=== PATIENT | male | born 1935 | race Caucasian/White ===

== ENCOUNTER → 2016-06-30 | Outpatient (CLI) | payer OTHER ==
[~2016-06-30] MED LIST: ASPEC325 PO; CLB200 PO; FLUT0.0529 NAE; HYDR-5688 PO; OMEG10007 PO; OXYSR10 PO; SALI1SPR3 NAE; [UNRECOGNIZED DRUG - OTHER] PO
[2016-06-30 18:10] LABS: BASO % 0.2 %; BASO ABS # 0.01 K/uL (0-0.2); COMPLETE YES; IG% 0.5 %; LYMPH % 31.6 %; LYMPH ABS # 1.74 K/uL (1.2-3.4); MEAN CELL VOLUME 85.9 fL (80-100); MEAN CORPUSCULAR HEMOGLOBIN 28.9 pg (25-34); MEAN CORPUSCULAR HGB CONC 33.6 g/dl (32-36); MEAN PLATELET VOLUME 9.9 fL (7.4-10.4); MONO % 8.5 %; NEUT % 55.2 %; PLATELET COUNT 173 K/uL (130-400); RED BLOOD COUNT 5.12 M/uL (4.7-6.1); WHITE BLOOD COUNT 5.51 K/uL (4.8-10.8)
[2016-06-30 19:00] LABS: ALB/GLOB RATIO 1.1 (0.9-2); ALT/SGPT 32 U/L (12-78); AST/SGOT 22 U/L (15-37); BLOOD UREA NITROGEN 17 mg/dl (7-18); BUN/CREATININE RATIO 18.7 (10-20); CALCIUM 8.6 mg/dl (8.5-10.1); CARBON DIOXIDE 28 mmol/L (21-32); CHLORIDE 110 mmol/L (98-107); CREATININE 0.93 mg/dl (0.60-1.40); GLUCOSE 95 mg/dl (70-99); POTASSIUM 4.3 mmol/L (3.5-5.1); SODIUM 145 mmol/L (136-145)
[2016-06-30 19:05] LABS: ALKALINE PHOSPHATASE 64 U/L (45-117); CHOLESTEROL 161 mg/dl (0-200); HDL CHOLESTEROL 54 mg/dl; LDL CHOLESTEROL CALCULATED 88 mg/dl; TRIGLYCERIDES 95 mg/dl (0-150); VERY LOW DENSITY LIPOPROT CALC 19 mg/dl
== END | disposition home or self-care (01) ==
LOC: C.LABSPEC 17:45
PROVIDERS: ATTEND Family Medicine
DX: Z00.00 Encounter for general adult medical examination without abnormal findings (principal); Z12.5 Encounter for screening for malignant neoplasm of prostate

== ENCOUNTER 2020-05-13 07:50 | Observation (INO) ==
--- NOTE | 2020-04-21 15:50 | PAT Medication Instructions ---
Medication Instructions Date of Service April 21, 2020 Home Medications omega-3 fatty acids 1,000 mg capsule 1,000 mg PO QAM finasteride 5 mg PO QPM tamsulosin 0.4 mg PO QPM STOP taking 2 weeks before surgery omega-3 fatty acids 1,000 mg capsule 1,000 mg PO QAM Take evening before surgery finasteride 5 mg PO QPM tamsulosin 0.4 mg PO QPM OTHERWISE NOTHING TO EAT OR DRINK AFTER MIDNIGHT Other Notes If you have any questions please call us at [phone] or [phone] or [phone] or [phone]
--- NOTE | 2020-04-23 11:33 | Anesthesiology Consultation ---
Date of Service April 23, 2020 Assessment & Plan (1) Encounter for pre-operative examination: Chart Review Chart Review: Acceptable Risk for Surgery (pending preop Covid testing ) and Patient seen in Pre Admission Testing Per PAT appointment 04/23/20, patient denies any recent travel. Wears proper PPE. No known Covid infection in the past 90 days. No known Covid positive contacts or Covid related symptoms. Preop Covid testing scheduled 05/08/20= will await results . Educated on importance of self quarantining, social distancing and wearing mask in public both for the patient and household contacts. Fully vaccinated for Covid. Pt's daughter from [place] will be coming to visit prior to surgery- daughter follows all Covid restrictions- did educated the patient that he will need to social distances from daughter until after surgery. Teaching & Discussion Pre-Anesthesia Teaching/Discussion Notes: Instructed NPO after midnight before surgery,except medications with 15 cc of water. Medication instructions provided according to the [facility] guidelines. History Surgery Operation Date: 05/13/20 10:05 Proposed Procedures p Right Total Hip Arthroplasty - Javan Rodriguez MD Height/Weight Height: 5 ft 10 in Weight: 97.4 kg Allergies Allergy/AdvReac Type Severity Reaction Status Date / Time No Known Allergies Allergy Unverified 04/17/20 10:22 Medications Home Medications Medication Instructions Recorded Confirmed Last Taken omega-3 fatty acids 1,000 mg 1,000 mg PO QAM 08/06/19 04/17/20 Unknown capsule finasteride 5 mg PO QPM 04/17/20 04/17/20 Unknown tamsulosin 0.4 mg PO QPM 04/17/20 04/17/20 Unknown Past Medical History Medical History BPH (benign prostatic hyperplasia) Cervical radiculopathy Chronic back pain Degenerative disc disease Osteoarthritis Tremor 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 Exercise / Class Metabolic Activity II 4-5 Yardwork/Stairs/Walk up hill (one flight of stairs - no chest pain or SOB ) Past Family History Family History Mother Congestive heart failure (CHF) age 99 Father Alcoholism Peptic ulcer disease internal bleeding age 83 Grandfather (Maternal) Natural age 64 smoker Other No family history of adverse response to anesthesia No pertinent family history Past Surgical History Surgical History History of carpal tunnel release right History of knee replacement, total left History of left hip replacement History of nasal surgery History of tonsillectomy S/P epidural steroid injection Past Anesthesia History No Hx of Anesthesia Complications and No Family Hx of Anesthesia Complications History of PONV No Hx of PONV and No Hx of Motion Sickness Social History Smoking Status: Never smoker Do You Dip or Chew Tobacco: No Hx Alcohol Use: Yes Alcohol type: wine alcohol intake frequency: a few times a month Hx Substance Use: No substance use type: does not use Review of Systems Snoring in the past - improved since nasal polyp removed. Patient denies chest pain, shortness of breath, dyspnea on exertion, reflux, cough, wheezing, palpitations. No hx of seizures, stroke, [place]. No hx of blood clots or blood transfusions Physical Exam Vital Signs VITALS BP 152/81 P 89 TEMP 98.3 SP02 96% RESP 16 Constitutional no acute distress ENMT Mouth: no TMJ clicking Thyromental Distance: > or= 3.5 Finger Breadths (4.0) Mallampati Class: III Full upper dentures Missing molars on bottom Neck + short neck and + limited neck extension (significant ) Respiratory normal respiratory effort; no respiratory distress Auscultation: lungs clear to auscultation bilaterally; no wheezes Cardiovascular Rate/Rhythm: regular rate and regular rhythm Heart Sounds: no murmur Vessels: no carotid bruit Musculoskeletal Spine: no pain with cervical ROM Extremities: extremities normal to inspection Psychiatric Orientation: alert Testing Laboratory Results 04/23/20 11:53 04/23/20 11:53 PT 10.2 Seconds (9.0-12.0) 04/23/20 11:53 INR 1.0 (0.9-1.1) 04/23/20 11:53 APTT 25.6 Seconds (21.0-31.0) 04/23/20 11:53 Hemoglobin A1c 6.2 % (4.5-5.6) H 04/23/20 11:53 Urine Color Yellow 04/23/20 13:55 Urine Appearance Clear (Clear) 04/23/20 13:55 Urine pH 5.0 (4.5-7.5) 04/23/20 13:55 Ur Specific [place] 1.022 (1.000-1.030) 04/23/20 13:55 Urine Protein Negative (Negative) 04/23/20 13:55 Urine Glucose (UA) Negative (Negative) 04/23/20 13:55 Urine Ketones Trace (Negative) H 04/23/20 13:55 Urine Nitrite Negative (Negative) 04/23/20 13:55 Ur Leukocyte Esterase Trace (Negative) H 04/23/20 13:55 Urine WBC (Auto) 1-5 /hpf (0-5) 04/23/20 13:55 Urine RBC (Auto) 0-4 /hpf (0-4) 04/23/20 13:55 U Hyaline Cast (Auto) 1-5 /lpf (0-5) 04/23/20 13:55 U Epithel Cells (Auto) 20-30 /lpf (0-5) H 04/23/20 13:55 Urine Bacteria (Auto) Negative (Negative) 04/23/20 13:55 Blood Type O Positive 04/23/20 11:53 Antibody Screen NEGATIVE 04/23/20 11:53 Electrocardiogram Date: 04/23/20 Findings: + NSR @ (77bpm) and + no change from (August 04, 2017 per cardio ) LAFB. Minimal voltage criteria for LVH, may be normal variant. Chest X-Ray Date: 04/23/20 Findings: + NAD
[2020-04-23 12:42] LABS: Basophils # (auto) 0.01 K/uL (0-0.2); Basophils % (auto) 0.2 %; Eosinophils # (auto) 0.21 K/uL (0-0.5); Eosinophils % (auto) 3.4 %; Hematocrit (blood only) 42.3 % (42-52); Hemoglobin 14.6 g/dL (14.0-18.0); Immature Granulocytes # (auto) 0.01 K/uL (0.00-0.02); Immature Granulocytes % (auto) 0.2 %; Lymphocytes # (auto) 1.61 K/uL (1.2-3.4); Lymphocytes % (auto) 26.2 %; Mean Corpuscular Hemoglobin 28.5 pg (25-34); Mean Corpuscular Hgb Conc 34.5 g/dL (32-36); Mean Corpuscular Volume 82.5 fL (80-100); Mean Platelet Volume 10.1 fL (7.4-10.4); Monocytes # (auto) 0.54 K/uL (0.11-0.59); Monocytes % (auto) 8.8 %; Neutrophils # (auto) 3.76 K/uL (1.4-6.5); Neutrophils % (auto) 61.2 %; Platelet Count 184 K/uL (130-400); RDW Coefficient of Variation 13.9 % (11.5-14.5); RDW Standard Deviation 42.1 fL (36.4-46.3); Red Blood Count 5.13 M/uL (4.7-6.1); White Blood Count 6.14 K/uL (4.8-10.8)
--- NOTE | 2020-04-23 12:45 | XRay Report ---
XR chest Pre-admission PA/Lat CLINICAL HISTORY: Preoperative chest COMPARISON STUDY: April 03, 2014 FINDINGS: The cardiac and mediastinal contours are normal. There is no evidence of focal pulmonary co nsolidation. There is no evidence of failure. No pleural effusions are visualized.[ IMPRESSION: No active disease in the chest. ACT 112: Negative or not required by law. Electronically signed by: Mateo Padilla M.D. 04/23/2020 12:43 PM
[2020-04-23 12:50] LABS: Partial Thromboplastin Time 25.6 Seconds (21.0-31.0); Prothrombin Time 10.2 Seconds (9.0-12.0)
[2020-04-23 12:58] LABS: Albumin Level 3.2 gm/dl (3.4-5.0); BUN Creatinine Ratio 20.1 (10-20); Calcium 9.1 mg/dl (8.5-10.1); Creatinine Clr Calc Pharmacy 75.8 ml/min; Est GFR (African American) 92.7; Potassium 3.8 mmol/L (3.5-5.1)
[2020-04-23 13:01] LABS: Estimated Average Glucose 131 mg/dl; Hemoglobin A1C 6.2 % (4.5-5.6)
[2020-04-23 15:33] LABS: Appearance Urine Clear (Clear); Bacteria Urine Automated Negative (Negative); Bilirubin Urine Negative (Negative); Blood Urine Negative (Negative); Color Urine Yellow; Epithelial Cell Urine Auto 20-30 /lpf (0-5); Glucose Urine UA Negative (Negative); Ketones Urine Trace (Negative); Leukocyte Esterase Urine Trace (Negative); Nitrite Urine Negative (Negative); Protein Urine Negative (Negative); RBC Urine Automated 0-4 /hpf (0-4); Specific Gravity Urine 1.022 (1.000-1.030); Urobilinogen Urine Negative (Negative)
--- NOTE | 2020-04-24 12:51 | Electrocardiogram Report ---
Test Reason : Blood Pressure : / mmHG Vent. Rate : 077 BPM Atrial Rate : 077 BPM P-R Int : 188 ms QRS Dur : 110 ms QT Int : 424 ms P-R-T Axes : 061 -57 019 degrees QTc Int : 479 ms Normal sinus rhythm Left anterior fascicular block Minimal voltage criteria for LVH, may be normal variant Abnormal ECG When compared with ECG of 04-AUG-2017 11:11, No significant change was found Confirmed by Jeremy Nichole ([id number]) on 04/24/2020 12:50:34 PM Referred By: Javan Rodriguez Confirmed By:Jeremy Nichole
--- NOTE | 2020-05-10 20:48 | History & Physical Report ---
Date of Service May 10, 2020 Assessment & Plan (1) Osteoarthritis of right hip: Treatment options discussed with patient. He has failed conservative measures. Risks, benefits and alternatives to surgery including but not limited to infection, DVT, pain, stiffness, need for revision surgery, damage to blood vessels, damage to nerves, PE, , were discussed with the patient and they wish to proceed. Plan for right total hip arthroplasty at [facility] on 05/13/[address] Rodriguez. Will plan on aspirin 81mg BID x 1 mo post op for DVT prophylaxis. He will attend outpatient PT. All questions answered. F/u post operatively. Osteoarthritis type: primary Qualified Code(s): M16.11 - Unilateral primary osteoarthritis, right hip History of Present Illness Chief Complaint: Right hip pain Primary Care Provider: Domenic Sommer MD 84 year old male with PMHx significant for essential tremor, BPH, and DDD presents with longstanding right hip pain. Pain is interfering with his daily activity. He has failed conservative measures. Previously has had left hip replacement and has done well. Would like to proceed with right hip replacement. Patient denies headaches, sweats, fevers, chills, double vision, blurred vision, cough, sore throat, dysphagia, chest pain, sob, wheezing, n/v/d/c, numbness, tingling, fatigue, urinary symptoms, mood disorders. ROS positive for right hip pain and stiffness. 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 Surgical History History of carpal tunnel release right History of knee replacement, total left History of left hip replacement History of nasal surgery History of tonsillectomy S/P epidural steroid injection Family History Mother Congestive heart failure (CHF) age 99 Father Alcoholism Peptic ulcer disease internal bleeding age 83 Grandfather (Maternal) Natural age 64 smoker Other No family history of adverse response to anesthesia No pertinent family history Social History (Updated 03/10/20 @ 15:07 by Trupti Blancas MA) Smoking Status: Never smoker Second Hand Exposure: No; Do You Dip or Chew Tobacco: No; Tobacco Cessation Education Requested by Patient: No Hx Alcohol Use: Yes Alcohol type: wine Alcohol Intake Frequency: Monthly or Less Hx Substance Use: No Preferred Language: Turkmen Communication Ability: Effective Visual Impairment: Limited Hearing Ability: Hard of Hearing Hardware Sales Assistant Required: No Beliefs That Will Affect Care: None marital status: Current Living Situation: Spouse current occupational status: retired How many Children do You have: 2 Other Information That Helps Us Care for You: No Feels Safe at Home: Yes Safety Concerns: Feels Safe At This Time Childhood Exposure to Second-Hand Smoke: Yes Dental Care, Regularly: Yes Physical Activity Frequency: 3-4 Times per Week Seatbelt Use: always Sunscreen Use: Yes Assistive Devices: Cane, Denture - Upper and Glasses Review of Systems All systems reviewed & are unremarkable except as noted in HPI & below Physical Exam Constitutional: well developed and well nourished; no acute distress Eyes: PERRL, conjunctivae normal, anicteric sclerae ENMT: external ear and nose normal, oropharynx normal Neck: trachea midline, no thyromegaly Respiratory: normal respiratory effort, lungs clear to auscultation Cardiovascular: RRR, no murmur, no edema Musculoskeletal: Right hip: Active and passive painful ROM. Flexion to 95 degrees passively, abduction to 30 degrees, ER to 30, IR to 10 degrees. Strength normal. Skin: no rashes, warm and dry Neurologic: patellar DTR's 2+ bilat, sensation intact Psychiatric: A+Ox3, euthymic affect Results & Data ([facility]) Laboratory Results Lab Results 04/23/20 04/23/20 04/23/20 Range/Units 11:53 11:53 11:53 WBC 6.14 (4.8-10.8) K/uL RBC 5.13 (4.7-6.1) M/uL Hgb 14.6 (14.0-18.0) g/dL Hct 42.3 (42-52) % MCV 82.5 (80-100) fL MCH 28.5 (25-34) pg MCHC 34.5 (32-36) g/dL RDW Std Deviation 42.1 (36.4-46.3) fL RDW Coeff of Laurie 13.9 (11.5-14.5) % Plt Count 184 (130-400) K/uL MPV 10.1 (7.4-10.4) fL Immature Gran % (Auto) 0.2 % Neut % (Auto) 61.2 % Lymph % (Auto) 26.2 % [place] % (Auto) 8.8 % Eos % (Auto) 3.4 % Baso % (Auto) 0.2 % Neut # (Auto) 3.76 (1.4-6.5) K/uL Lymph # (Auto) 1.61 (1.2-3.4) K/uL [place] # (Auto) 0.54 (0.11-0.59) K/uL Eos # (Auto) 0.21 (0-0.5) K/uL Baso # (Auto) 0.01 (0-0.2) K/uL Immature Gran # (Auto) 0.01 (0.00-0.02) K/uL PT (9.0-12.0) Seconds INR (0.9-1.1) APTT (21.0-31.0) Seconds PTT Ratio Sodium 141 (136-145) mmol/L Potassium 3.8 (3.5-5.1) mmol/L Chloride 110 H (98-107) mmol/L Carbon Dioxide 26 (21-32) mmol/L Anion Gap 5.0 (3-11) BUN 18 (7-18) mg/dl Creatinine 0.88 (0.6-1.4) mg/dl Est Cr Clr Drug Dosing 75.8 ml/min Est GFR ( Amer) 92.7 Est GFR (Non-Af Amer) 80.0 BUN/Creatinine Ratio 20.1 H (10-20) Glucose 101 H (70-99) mg/dl Estimat Average Glucose mg/dl Hemoglobin A1c (4.5-5.6) % Calcium 9.1 (8.5-10.1) mg/dl Albumin 3.2 L (3.4-5.0) gm/dl Urine Color Urine Appearance (Clear) Urine pH (4.5-7.5) Ur Specific [place] (1.000-1.030) Urine Protein (Negative) Urine Glucose (UA) (Negative) Urine Ketones (Negative) Urine Blood (Negative) Urine Nitrite (Negative) Urine Bilirubin (Negative) Urine Urobilinogen (Negative) Ur Leukocyte Esterase (Negative) Urine WBC (Auto) (0-5) /hpf Urine RBC (Auto) (0-4) /hpf U Hyaline Cast (Auto) (0-5) /lpf U Epithel Cells (Auto) (0-5) /lpf Urine Bacteria (Auto) (Negative) Blood Type O Positive Antibody Screen NEGATIVE 04/23/20 04/23/20 04/23/20 Range/Units 11:53 11:53 13:55 WBC (4.8-10.8) K/uL RBC (4.7-6.1) M/uL Hgb (14.0-18.0) g/dL Hct (42-52) % MCV (80-100) fL MCH (25-34) pg MCHC (32-36) g/dL RDW Std Deviation (36.4-46.3) fL RDW Coeff of Laurie (11.5-14.5) % Plt Count (130-400) K/uL MPV (7.4-10.4) fL Immature Gran % (Auto) % Neut % (Auto) % Lymph % (Auto) % [place] % (Auto) % Eos % (Auto) % Baso % (Auto) % Neut # (Auto) (1.4-6.5) K/uL Lymph # (Auto) (1.2-3.4) K/uL [place] # (Auto) (0.11-0.59) K/uL Eos # (Auto) (0-0.5) K/uL Baso # (Auto) (0-0.2) K/uL Immature Gran # (Auto) (0.00-0.02) K/uL PT 10.2 (9.0-12.0) Seconds INR 1.0 (0.9-1.1) APTT 25.6 (21.0-31.0) Seconds PTT Ratio 1.0 Sodium (136-145) mmol/L Potassium (3.5-5.1) mmol/L Chloride (98-107) mmol/L Carbon Dioxide (21-32) mmol/L Anion Gap (3-11) BUN (7-18) mg/dl Creatinine (0.6-1.4) mg/dl Est Cr Clr Drug Dosing ml/min Est GFR ( Amer) Est GFR (Non-Af Amer) BUN/Creatinine Ratio (10-20) Glucose (70-99) mg/dl Estimat Average Glucose 131 mg/dl Hemoglobin A1c 6.2 H (4.5-5.6) % Calcium (8.5-10.1) mg/dl Albumin (3.4-5.0) gm/dl Urine Color Yellow Urine Appearance Clear (Clear) Urine pH 5.0 (4.5-7.5) Ur Specific [place] 1.022 (1.000-1.030) Urine Protein Negative (Negative) Urine Glucose (UA) Negative (Negative) Urine Ketones Trace H (Negative) Urine Blood Negative (Negative) Urine Nitrite Negative (Negative) Urine Bilirubin Negative (Negative) Urine Urobilinogen Negative (Negative) Ur Leukocyte Esterase Trace H (Negative) Urine WBC (Auto) 1-5 (0-5) /hpf Urine RBC (Auto) 0-4 (0-4) /hpf U Hyaline Cast (Auto) 1-5 (0-5) /lpf U Epithel Cells (Auto) 20-30 H (0-5) /lpf Urine Bacteria (Auto) Negative (Negative) Blood Type Antibody Screen Diagnostic Findings Right hip radiographs: Arthritic change right hip with osteophyte formation femoral head. Bone on bone femoroacetabular joint.
[~2020-05-13 07:50] MED LIST changes: +ACETAMINOPHEN 500 MG TAB PO SCH; -ASPEC325 PO; +BUPIVACAINE 0.5 % 5 MG/1 ML PF 10ML VIAL ONE; -CLB200 PO; +CeleBREX 200 MG CAP PO SCH; +FAMOTIDINE 20 MG TAB PO SCH; -FLUT0.0529 NAE; +GABAPENTIN 300 MG CAP PO SCH; -HYDR-5688 PO; +LR 500ML BOLUS, THEN 15ML/HR IV SCH; +METOCLOPRAMIDE HCL 10 MG TABLET PO SCH; -OMEG10007 PO; -OXYSR10 PO; +ROPIVACAINE 0.5% HCL/PF 150 MG, BUPIVACAINE 0.75% MPF 20 ML, EPINEPHrine 30MG/30ML (OR ... INSTIL SCH; -SALI1SPR3 NAE; +TRANEXAMIC ACID 1,000 MG **IV Intra-op IV SCH; +TRANEXAMIC ACID 1,000 MG **IV Pre-op IV SCH; -[UNRECOGNIZED DRUG - OTHER] PO; +ceFAZolin 2000MG 2,000 MG/15 ML SYR IV SCH; +dexAMETHasone 4 MG TAB PO SCH
[2020-05-13] MEDS ORDERED: fentaNYL citrate 100 MCG/2 ML VIAL ONE (09:03)
[2020-05-13] MEDS ORDERED: LIDOCAINE HCL 2% 2 ML VIAL/AMP(20MG/ML) INFIL ONE (09:03)
[2020-05-13] MEDS ORDERED: PROPOFOL IV EMULSION 10 MG/ML 20 ML VIAL IV ONE ×2 (09:03→14:06)
[2020-05-13] MEDS ORDERED: MIDAZOLAM HCL 1 MG/ML 2ML VIAL ONE (09:03)
[2020-05-13] MEDS ORDERED: ONDANSETRON INJ 2 MG/ML 2 ML VIAL IV PRN ×2 (09:36→15:29)
[2020-05-13] MEDS ORDERED: ATROPINE SULFATE 0.1 MG/ML 10ML SYR IV PRN (09:36)
[2020-05-13] MEDS ORDERED: fentaNYL citrate 100 MCG/2 ML VIAL IV PRN (09:36)
[2020-05-13] MEDS ORDERED: ePHEDrine sulfate 50 MG/ML AMP IV PRN (09:36)
--- NOTE | 2020-05-13 10:17 | History & Physical Bridge Note ---
Date of Service May 13, 2020 History & Physical Bridge Note I have examined the patient, reviewed the History & Physical and in the interval since the performance of the History & Physical I have noted the following changes of clinical significance: no changes noted
[2020-05-13] MEDS ORDERED: ORTHO JOINT ANESTHETIC ONE (10:22)
[2020-05-13] MEDS ORDERED: BACITRACIN INJ 50,000 UNIT VIAL ONE (10:23)
--- NOTE | 2020-05-13 13:55 | Operative Report ---
Post Operative Report Pre & Post Diagnosis Operation Date: 05/13/20 10:00 Pre-Op Diagnosis: Right Hip Degenerative Joint Disease Post-Op Diagnosis: Right Hip Degenerative Joint Disease I identified the patient and participated in the time-out.: Yes Procedure Operation Date: 05/13/20 10:00 Actual Procedures p Right Total Hip Arthroplasty(Right) - Javan Rodriguez MD Surgeon Javan Rodriguez MD Rivet Bucker Capo MODI Estimated Blood Loss 200 Findings Consistent with Post-Op Diagnosis Specimens Femoral head Drains 2 Hemovac Anesthesia Type MAC Spinal Regional Complications none Disposition Accompanied Patient To Recovery: No Disposition: Recovery Room Indications 84-year-old male with chronic progressive right hip pain failed conservative management. Patient has osteoarthritis of the right hip with progression on radiographs with a protrusio type pattern arthritis. There is joint space narrowing osteophytes. Patient had left hip replacement in the past with good results. Description of Procedure Patient taken to the operating room and anesthetized under spinal anesthesia and sedation. Patient was placed supine on the operating table. Exam of the involved extremity demonstrated flexion to 100 degrees passively with 15 degrees internal rotation mild shortening of the leg..The patient was placed on a sacral pad and the involved leg was placed on a foot bump to flex knee 90 and hip 60. A Canseco-type approach was performed to the hip. A longitudinal lateral incision was made over the hip. The skin was incised sharply. The fat was divided down to the fascia. Subcutaneous bleeders are cauterized. Trochanteric bursa was resected. There was thickened trochanteric bursa noted. A split was made in the gluteus medius muscle between the anterior 40% and posterior 60%. The minimus was divided longitudinally reflected off the underlying capsule. The capsule was incised down to the hip joint. An incision was made through the gluteus medius leaving a cuff of tendon for repair on the greater trochanter. The vastus lateralis was split longitudinally for about 3 cm. A muscular capsular flap was elevated off the hip. The hip was dislocated with use of bone hook and with flexion and external rotation of the hip. The femoral neck cut was made approximately 15 mm proximal to the lesser trochanter in neutral anteversion. Head and neck fragment were removed. The femoral head demonstrated femoral neck osteophytes with articular joint space narrowing with central grade 4 wear. A self-retaining superior tractor was impacted into the ilium, a blunt Jesus retractor was placed anteriorly a double angled inferior retractor was placed on the ischium. The acetabulum demonstrated an acetabular labral tear with a large para labral cyst superiorly. There was central wear of the acetabulum. The acetabular labrum was resected, the acetabular labral cyst was resected, all osteophytes were resected.The soft tissue in the acetabular fossa was resected. An anterior capsular release was performed. Some the capsule was resected for exposure. The first reamer was used to medialize reaming to the inner table and then sequential reamers for the acetabulum were used in 2 mm increments up to a size 56 mm. I used the [employer] total hip arthroplasty system using a Trident 2 Tritanium cluster hole acetabular shell . Trial reduction demonstrated a 56 millimeter cup was the appropriate size and fit. The placement of the final implant was performed after irrigating the acetabulum with antibiotic solution with pulsatile lavage. The position of the cup was approximately 15 anteversion 45 abduction. Good fixation was performed. Two 6.5 mm cancellus screws were placed in the posterior superior quadrant for further fixation through the cup. The acetabular liner was impacted into position. The 36 mm F 10 degree high wall X3 polyethylene acetabular liner was used.The Orthomix coctail injected into the capsule around the acetabular component and deeper muscles. The retractors removed and attention was taken to the femur. The femur was exposed with flexion external rotation. A Canal reamer was used followed by sequential tapered Accolade 2 broaches up to a size 6. This had a good fit and fill. Trial reduction was performed with a 127 degree neck angle based on preoperative templating. A + 0 neck length gave equal leg lengths and stable range of motion through full flexion flexion adduction and internal rotation and extension and external r otation. The trials removed and after irrigation again and the final implant was impacted which was the Accolade 2 size 6 with 127 degree neck angle. The Biolox ceramic head size 36 with a +0 neck was used. After final implants replaced the reduction was noted to be stable. Betadine soak was used per protocol. 2 drains were placed deep. These were brought out laterally and connected to Hemovac. The minimus was closed with interrupted [id number] #1 Vicryl sutures. The medius was closed with transosseous #5 FiberWire sutures using Ronny Deuce suture technique. Lateral row soft tissue repair was performed with figure of 8 #2 FiberWire sutures. The medius split was closed with interrupted [id number] #1 Vicryl sutures. The vastus lateralis was closed with interrupted figure of eight #1Vicryl sutures. The fascia jason was closed with interrupted figure of eight #1 Vicryl sutures. The fat was closed with [id number] #2 Vicryl sutures. Skin was closed with prabhakar and sterile dressings were applied. The patient tolerated procedure well. Capo MODI my physician school office assistant assisted me in the procedure with patient positioning And draping soft tissue retraction instrument management suture management and assisted in the outer layer closure and will participate in the postoperative care the patient. I attest to the content of the Intraoperative Record and any orders documented therein. Any exceptions are noted below.
--- NOTE | 2020-05-13 14:23 | Anesthesiology Progress Note ---
Date of Service May 13, 2020 Anesthesia Post Procedure Vital Signs Vital Signs: Temp Pulse Pulse Resp BP Pulse Ox 05/13/20 14:20 64 15 125/76 97 05/13/20 14:10 36.6 C 70 15 131/86 98 05/13/20 08:49 36.7 C 68 18 126/92 96 Transfer of Care Handoff Completed per policy Notes Mental Status: alert / awake / arousable Patient Amnestic to Procedure: Yes Nausea / Vomiting: adequately controlled Pain: adequately controlled Airway Patency, RR, SpO2: stable & adequate BP & HR: stable & adequate Hydration State: stable & adequate Anesthetic Complications: no major complications apparent
--- NOTE | 2020-05-13 14:31 | XRay Report ---
XR hip 1V RT w pelvis HISTORY: 84 years-old Male IN PACU - A/P PELVIS and LATERAL HIP right hip total joint arthroplasty COMPARISON: Pelvis and hip radiographs 08/23/2017 TECHNIQUE: AP view the pelvis with crosstable lateral view of the right hip FINDINGS: Left hip total joint arthroplasty redemonstrated. Interval placement of a right hip total joint arthr oplasty demonstrates satisfactory alignment without acute fracture. Overlying skin prabhakar are noted along with expected postsurgical soft tissue swelling and deep tissue air with surgical drainage cath eter. IMPRESSION: Right hip total joint arthroplasty with expected postoperative changes. ACT 112: Negative or not required by law. The above report was generated using voice recognition software. It may contain grammatical, syntax o r spelling errors. Electronically signed by: Girma Murrieta M.D. 05/13/2020 2:30 PM
[2020-05-13] MEDS ORDERED: METOCLOPRAMIDE HCL INJ 5 MG/ML 2 ML VIAL IV PRN (15:29)
[2020-05-13] MEDS ORDERED: NALOXONE HCL 0.4 MG/1 ML VIAL/CARP IV PRN (15:29)
[2020-05-13] MEDS ORDERED: HYDROmorphone INJ 0.5 MG/0.5 ML SYR IV PRN (15:29)
[2020-05-13] MEDS ORDERED: MAGNESIUM HYDROXIDE SUSP 30 ML UDC PO PRN (15:29)
[2020-05-13] MEDS ORDERED: SODIUM CHLORIDE 0.9% 1000ML 1,000 ML IV SCH (15:29)
[2020-05-13] MEDS ORDERED: bisacodyL 10 MG SUPP PR PRN (15:29)
[2020-05-13] MEDS ORDERED: oxyCODONE HCL IR 5 MG TAB (IMMEDIATE RELEASE) PO PRN (15:29)
[2020-05-13] MEDS: ceFAZolin 2000MG 2,000 MG/15 ML SYR IV SCH (17:26)
[2020-05-13] MEDS: SENNA 8.6 MG TAB PO SCH (20:48)
[2020-05-13] MEDS: FINASTERIDE 5 MG TAB PO SCH (20:48)
[2020-05-13] MEDS: ASPIRIN 81 MG ECTAB PO SCH (20:48)
[2020-05-13] MEDS: CeleBREX 200 MG CAP PO SCH (20:48)
[2020-05-13] MEDS: DOCUSATE SODIUM 100 MG CAP PO SCH (20:48)
[2020-05-13] MEDS: TAMSULOSIN HCL 0.4 MG CAP PO SCH (20:48)
[2020-05-13] MEDS: ACETAMINOPHEN 500 MG TAB PO SCH (21:50)
[2020-05-14] MEDS: ceFAZolin 2000MG 2,000 MG/15 ML SYR IV SCH (02:13)
[2020-05-14 06:16] LABS: Basophils # (auto) 0.01 K/uL (0-0.2); Basophils % (auto) 0.1 %; Eosinophils # (auto) 0.02 K/uL (0-0.5); Eosinophils % (auto) 0.2 %; Hematocrit (blood only) 37.3 % (42-52); Immature Granulocytes # (auto) 0.03 K/uL (0.00-0.02); Immature Granulocytes % (auto) 0.2 %; Lymphocytes # (auto) 1.37 K/uL (1.2-3.4); Lymphocytes % (auto) 10.4 %; Mean Corpuscular Hemoglobin 28.7 pg (25-34); Mean Corpuscular Hgb Conc 34.9 g/dL (32-36); Mean Corpuscular Volume 82.3 fL (80-100); Mean Platelet Volume 9.6 fL (7.4-10.4); Monocytes # (auto) 1.05 K/uL (0.11-0.59); Neutrophils # (auto) 10.67 K/uL (1.4-6.5); Neutrophils % (auto) 81.1 %; Platelet Count 180 K/uL (130-400); RDW Coefficient of Variation 13.7 % (11.5-14.5); RDW Standard Deviation 41.7 fL (36.4-46.3); Red Blood Count 4.53 M/uL (4.7-6.1); White Blood Count 13.15 K/uL (4.8-10.8)
[2020-05-14] MEDS: ACETAMINOPHEN 500 MG TAB PO SCH ×3 (06:27→22:22)
--- NOTE | 2020-05-14 06:32 | Consultation Report ---
DATE OF CONSULTATION: 05/14/2020 CHIEF COMPLAINT: Status post right hip surgery. HISTORY OF PRESENT ILLNESS: This is an 84-year-old male with past medical history significant for BPH. No other significant medical problems. He is status post right hip surgery for right hip degenerative joint disease. Tolerated the procedure okay. Denies any pain. Denies any chest pain. No shortness of breath, no cough. Able to eat okay. No headache, no blurred vision, no earache, no runny nose, no sore throat, no nausea, no abdominal pain. Resting comfortably and hemodynamically stable. ALLERGIES: No known drug allergies. PAST MEDICAL HISTORY: As mentioned above. PAST SURGICAL HISTORY: Right total hip arthroplasty. MEDICATIONS: Flomax 0.4 mg p.o. p.m., finasteride 5 mg p.o. p.m., omega fatty acids 1 gram p.o. daily. FAMILY HISTORY: Denies any family history. SOCIAL HISTORY: Lives with his . No smoking. Alcohol occasional. No drug use. REVIEW OF SYSTEMS: As per HPI. Rest of the review of systems negative. PHYSICAL EXAMINATION: GENERAL: The patient is of moderate build, not in acute distress. VITAL SIGNS: Temperature 36.6, pulse 89, respiratory rate 14, blood pressure 132/63, oxygen 96% on room air. HEENT: Head is atraumatic. NECK: No neck masses seen. CARDIOVASCULAR: S1, S2 heard. Regular rate and rhythm. No murmur, no gallop. RESPIRATORY SYSTEM: Normal AP diameter. No accessory muscle use. No wheezing, no crackles. ABDOMEN: Soft, bowel sounds present. Nontender. No distention. CENTRAL NERVOUS SYSTEM: Cranial nerves II-XII grossly intact. Nonfocal. EXTREMITIES: Status post right total hip arthroplasty. Surgical site dressing and drain intact. No edema seen. LABORATORY DATA: Unavailable. ASSESSMENT AND PLAN: This is an 84-year-old male patient status post right hip arthroplasty. 1. Right total hip arthroplasty: Tolerated the procedure fine. Further management as per orthopedics.Will follow labs. 2. Benign prostatic hypertrophy: Continue his home Flomax and finasteride. 3. Deep venous thrombosis prophylaxis.as per orthopedics. 4. Disposition as per orthopedics. [facility]
[2020-05-14 06:54] LABS: BUN Creatinine Ratio 24.2 (10-20); Calcium 8.5 mg/dl (8.5-10.1); Creatinine Clr Calc Pharmacy 69.5 ml/min; Est GFR (Non-African American) 73.3; Potassium 4.2 mmol/L (3.5-5.1)
--- NOTE | 2020-05-14 07:19 | Orthopedic Progress Note ---
Date of Service May 14, 2020 Assessment & Plan (1) Osteoarthritis of right hip: POD#1 Right SACHI -PT/OT-WBAT with walker, no abductor strengthening -Pain management -AM labs-hemoglobin at 13 from 14.6 preop. Mild leukocytosis likely due to perioperative steroids and surgical stress -DVT prophylaxis-ASA 81mg BID, SCDs, TEDs -D/C planning-home with outpatient PT. Plan on d/c tomorrow. Admission and Anticipated Discharge Date Admission Date: May 13, 2020 Supervising Physician Co-Signing Physician Notes Patient seen and examined. Agree with LY Portillo's note as above. Patient overall doing well. Pain is well controlled. He has been ambulating in the hallway. No complaints. Subjective Patient doing well this morning. Pain well controlled. No other complaints. Denies chest pain, sob, dizziness, headache, fever, chills. Review of Systems Constitutional: as per Subjective / HPI Physical Exam Physical Exam: Dressing to right hip is c/d/i. Hemovac in place. Toes are mobile with good dorsiflexion. No calf tenderness. Distally n/v status and sensation intact. Constitutional: well developed and well nourished; no acute distress Results & Data ([facility]) Vital Signs (Past 12 Hours) Vital Signs Temp Pulse Resp BP Pulse Ox 05/14/20 03:43 36.8 C 63 14 113/66 98 05/13/20 23:27 36.6 C 89 14 132/63 96 05/13/20 19:39 36.8 C 84 14 153/79 H 98 (1) Osteoarthritis of right hip Osteoarthritis type: primary Qualified Code(s): M16.11 - Unilateral primary osteoarthritis, right hip
[2020-05-14] MEDS: ASPIRIN 81 MG ECTAB PO SCH ×2 (08:43→21:55)
[2020-05-14] MEDS: DOCUSATE SODIUM 100 MG CAP PO SCH ×2 (08:44→21:55)
[2020-05-14] MEDS: MULTIVITAMIN TAB PO SCH (08:44)
[2020-05-14] MEDS: CeleBREX 200 MG CAP PO SCH ×2 (08:44→21:55)
[2020-05-14] MEDS: TAMSULOSIN HCL 0.4 MG CAP PO SCH (21:55)
[2020-05-14] MEDS: SENNA 8.6 MG TAB PO SCH (21:55)
[2020-05-14] MEDS: FINASTERIDE 5 MG TAB PO SCH (21:55)
[2020-05-15] MEDS: ACETAMINOPHEN 500 MG TAB PO SCH (05:57)
[2020-05-15 06:42] LABS: Hematocrit (blood only) 35.8 % (42-52); Hemoglobin 12.5 g/dL (14.0-18.0); Mean Corpuscular Hemoglobin 28.6 pg (25-34); Mean Corpuscular Hgb Conc 34.9 g/dL (32-36); Mean Corpuscular Volume 81.9 fL (80-100); Mean Platelet Volume 10.2 fL (7.4-10.4); Platelet Count 193 K/uL (130-400); RDW Coefficient of Variation 13.8 % (11.5-14.5); RDW Standard Deviation 41.9 fL (36.4-46.3); Red Blood Count 4.37 M/uL (4.7-6.1); White Blood Count 8.32 K/uL (4.8-10.8)
--- NOTE | 2020-05-15 07:02 | Hospitalist Progress Note ---
Date of Service May 15, 2020 Assessment & Plan (1) Osteoarthritis of right hip: This is an 84-year-old male patient status post right hip arthroplasty. 1. S/p Right total hip arthroplasty w/ Dr. Rodriguez on 05/13 Pt tolerated the procedure well. Further management as per orthopedics, such as pain management, DVT ppx. Hgb stable at 12.5 No sign. electrolyte abnormalities noted 2. Benign prostatic hypertrophy: Continue his home Flomax and finasteride. DVT prophylaxis.as per orthopedics. Disposition as per orthopedics. Admission and Anticipated Discharge Date Admission Date: May 13, 2020 Subjective Patient seen in follow-up, of right hip surgery, and other medical problems Currently sitting up in a chair, in no acute distress Denies any fevers, chills, chest pain, shortness of breath, abdominal pain. He is passing gas but did not have a bowel movement yet. He is voiding urine without difficulty. Reports ambulating in hallway. Reports no complaints. Review of Systems Review of Systems: All systems reviewed & are unremarkable except as noted in HPI & below Constitutional: no fever and no chills Respiratory: no cough and no dyspnea Cardiovascular: no chest pain and no palpitations Gastrointestinal: no abdominal pain, no nausea and no vomiting Physical Exam Physical Exam: GENERAL: The patient is of moderate build, not in acute distress, sitting up in chair. HEENT: Head is normocephalic, atraumatic. NECK: No neck masses seen. CARDIOVASCULAR: S1, S2 heard. Regular rate and rhythm. No murmur, no gallop. RESPIRATORY SYSTEM: Normal AP diameter. No accessory muscle use. No wheezing, no crackles. ABDOMEN: Soft, bowel sounds present. Nontender. No distention. NEURO: Cranial nerves II-XII grossly intact. Nonfocal. Speech fluent. Moves extremities. EXTREMITIES: Status post right total hip arthroplasty. Surgical site dressing and drain intact. No edema seen. Results & Data Results & Data ([facility]) Vital Signs (Past 12 Hours) Vital Signs Temp Pulse Resp BP Pulse Ox 05/15/20 06:43 36.6 C 69 20 139/82 100 05/14/20 22:55 37.2 C 76 18 158/87 H 97 Laboratory Results 05/15/20 05/15/20 Range/Units 06:09 06:09 WBC 8.32 (4.8-10.8) K/uL RBC 4.37 L (4.7-6.1) M/uL Hgb 12.5 L (14.0-18.0) g/dL Hct 35.8 L (42-52) % MCV 81.9 (80-100) fL MCH 28.6 (25-34) pg MCHC 34.9 (32-36) g/dL RDW Std Deviation 41.9 (36.4-46.3) fL RDW Coeff of Laurie 13.8 (11.5-14.5) % Plt Count 193 (130-400) K/uL MPV 10.2 (7.4-10.4) fL Sodium 141 (136-145) mmol/L Potassium 4.0 (3.5-5.1) mmol/L Chloride 112 H (98-107) mmol/L Carbon Dioxide 29 (21-32) mmol/L Anion Gap 0 L (3-11) BUN 21 H (7-18) mg/dl Creatinine 0.80 (0.6-1.4) mg/dl Est Cr Clr Drug Dosing 83.4 ml/min Est GFR ( Amer) 96.4 Est GFR (Non-Af Amer) 83.2 BUN/Creatinine Ratio 25.8 H (10-20) Glucose 107 H (70-99) mg/dl Calcium 8.3 L (8.5-10.1) mg/dl Medications Administered Current Inpatient Medications Acetaminophen (Acetaminophen 500 Mg Tab) 1,000 mg PO Q8 [facility] Stop: 06/12/20 21:59 Last Admin: 05/15/20 05:57 Dose: 1,000 mg Documented by: Aspirin (Aspirin 81 Mg Ectab) 81 mg PO BID [facility] Stop: 06/12/20 20:59 Last Admin: 05/15/20 07:33 Dose: 81 mg Documented by: Bisacodyl (Bisacodyl 10 Mg Supp) 10 mg IA DAILY PRN PRN Reason: Constipation Stop: 06/12/20 15:28 Celecoxib (Celebrex 200 Mg Cap) 200 mg PO BID [facility] Stop: 06/12/20 20:59 Last Admin: 05/15/20 07:33 Dose: 200 mg Documented by: Docusate Sodium (Docusate Sodium 100 Mg Cap) 100 mg PO BID [facility] Stop: 06/12/20 20:59 Last Admin: 05/15/20 07:33 Dose: 100 mg Documented by: Finasteride (Finasteride 5 Mg Tab) 5 mg PO QPM [facility] Stop: 06/12/20 20:59 Last Admin: 05/14/20 21:55 Dose: 5 mg Documented by: Hydromorphone HCl (Hydromorphone Inj 0.5 Mg/0.5 Ml Syr) 0.5 mg IV Q4H PRN PRN Reason: Pain or Pre PT Stop: 05/27/20 15:28 Magnesium Hydroxide (Magnesium Hydroxide Susp 30 Ml Udc) 30 ml PO Q6H PRN PRN Reason: Constipation Stop: 06/12/20 15:28 Metoclopramide HCl (Metoclopramide Hcl Inj 5 Mg/Ml 2 Ml Vial) 10 mg IV Q6H PRN PRN Reason: Nausea And Vomiting Stop: 06/12/20 15:28 Multivitamins (Multivitamin Tab) 1 tab PO QAM [facility] Stop: 06/13/20 08:59 Last Admin: 05/15/20 07:33 Dose: 1 tab Documented by: Naloxone HCl (Naloxone Hcl 0.4 Mg/1 Ml Vial/Carp) 0.1 mg IV Q5M PRN PRN Reason: Oversedation/Resp Depression Stop: 06/12/20 15:28 Ondansetron HCl (Ondansetron Inj 2 Mg/Ml 2 Ml Vial) 4 mg IV Q6H PRN PRN Reason: Nausea And Vomiting Stop: 06/12/20 15:28 Oxycodone HCl (Oxycodone Hcl Ir 5 Mg Tab (Immediate Release)) 5 - 10 mg PO Q4H PRN PRN Reason: Pain or Pre PT Stop: 05/27/20 15:28 Last Admin: 05/14/20 02:33 Dose: 5 mg Documented by: Sennosides (Senna 8.6 Mg Tab) 17.2 mg PO HS [facility] Stop: 06/12/20 20:59 Last Admin: 05/14/20 21:55 Dose: 17.2 mg Documented by: Tamsulosin HCl (Tamsulosin Hcl 0.4 Mg Cap) 0.4 mg PO QPM [facility] Stop: 06/12/20 20:59 Last Admin: 05/14/20 21:55 Dose: 0.4 mg Documented by: (1) Osteoarthritis of right hip Osteoarthritis type: primary Qualified Code(s): M16.11 - Unilateral primary osteoarthritis, right hip
[2020-05-15 07:03] LABS: BUN Creatinine Ratio 25.8 (10-20); Calcium 8.3 mg/dl (8.5-10.1); Creatinine Clr Calc Pharmacy 83.4 ml/min; Est GFR (African American) 96.4; Est GFR (Non-African American) 83.2
[2020-05-15] MEDS: ASPIRIN 81 MG ECTAB PO SCH (07:33)
[2020-05-15] MEDS: CeleBREX 200 MG CAP PO SCH (07:33)
[2020-05-15] MEDS: DOCUSATE SODIUM 100 MG CAP PO SCH (07:33)
[2020-05-15] MEDS: MULTIVITAMIN TAB PO SCH (07:33)
--- NOTE | 2020-05-15 09:17 | Orthopedic Progress Note ---
Date of Service May 15, 2020 Assessment & Plan (1) Osteoarthritis of right hip: POD#2 Right SACHI -PT/OT-WBAT with walker, no abductor strengthening -Pain management as written -AM labs-hemoglobin at 13 from 14.6 preop. Mild leukocytosis likely due to perioperative steroids and surgical stress-resolved -DVT prophylaxis-ASA 81mg BID, SCDs, TEDs -D/C planning-home with outpatient PT. Plan on d/c today. Admission and Anticipated Discharge Date Admission Date: May 13, 2020 Subjective Postop day 1 Patient currently sitting up in a chair at the bedside. No complaints this morning. Pain is controlled. I watched the patient go through his physical therapy ambulation as he ambulated around the hallways. Patient is progressing well and feels well today. He is hoping to go home today. Physical Exam Physical Exam: Silverlon dressing is clean, dry, and intact. Hemovac drain has been removed and he has some slight drainage on his dressing. Thigh is soft and nontender. Calves are soft nontender. Neurovascular intact. Toes are mobile. Leg lengths appear equal. Results & Data ([facility]) Vital Signs (Past 12 Hours) Vital Signs Temp Pulse Resp BP Pulse Ox 05/15/20 06:43 36.6 C 69 20 139/82 100 05/14/20 22:55 37.2 C 76 18 158/87 H 97 Laboratory Results Laboratory Results WBC 8.32 K/uL (4.8-10.8) 05/15/20 06:09 RBC 4.37 M/uL (4.7-6.1) L 05/15/20 06:09 Hgb 12.5 g/dL (14.0-18.0) L 05/15/20 06:09 Hct 35.8 % (42-52) L 05/15/20 06:09 MCV 81.9 fL (80-100) 05/15/20 06:09 MCH 28.6 pg (25-34) 05/15/20 06:09 MCHC 34.9 g/dL (32-36) 05/15/20 06:09 RDW Std Deviation 41.9 fL (36.4-46.3) 05/15/20 06:09 RDW Coeff of Laurie 13.8 % (11.5-14.5) 05/15/20 06:09 Plt Count 193 K/uL (130-400) 05/15/20 06:09 MPV 10.2 fL (7.4-10.4) 05/15/20 06:09 Immature Gran % (Auto) 0.2 % 05/14/20 06:06 Neut % (Auto) 81.1 % 05/14/20 06:06 Lymph % (Auto) 10.4 % 05/14/20 06:06 Elmore % (Auto) 8.0 % 05/14/20 06:06 Eos % (Auto) 0.2 % 05/14/20 06:06 Baso % (Auto) 0.1 % 05/14/20 06:06 Neut # (Auto) 10.67 K/uL (1.4-6.5) H 05/14/20 06:06 Lymph # (Auto) 1.37 K/uL (1.2-3.4) 05/14/20 06:06 Elmore # (Auto) 1.05 K/uL (0.11-0.59) H 05/14/20 06:06 Eos # (Auto) 0.02 K/uL (0-0.5) 05/14/20 06:06 Baso # (Auto) 0.01 K/uL (0-0.2) 05/14/20 06:06 Immature Gran # (Auto) 0.03 K/uL (0.00-0.02) H 05/14/20 06:06 PT 10.2 Seconds (9.0-12.0) 04/23/20 11:53 INR 1.0 (0.9-1.1) 04/23/20 11:53 APTT 25.6 Seconds (21.0-31.0) 04/23/20 11:53 PTT Ratio 1.0 04/23/20 11:53 Sodium 141 mmol/L (136-145) 05/15/20 06:09 Potassium 4.0 mmol/L (3.5-5.1) 05/15/20 06:09 Chloride 112 mmol/L (98-107) H 05/15/20 06:09 Carbon Dioxide 29 mmol/L (21-32) 05/15/20 06:09 Anion Gap 0 (3-11) L 05/15/20 06:09 BUN 21 mg/dl (7-18) H 05/15/20 06:09 Creatinine 0.80 mg/dl (0.6-1.4) 05/15/20 06:09 Est Cr Clr Drug Dosing 83.4 ml/min 05/15/20 06:09 Est GFR ( Amer) 96.4 05/15/20 06:09 Est GFR (Non-Af Amer) 83.2 05/15/20 06:09 BUN/Creatinine Ratio 25.8 (10-20) H 05/15/20 06:09 Glucose 107 mg/dl (70-99) H 05/15/20 06:09 Estimat Average Glucose 131 mg/dl 04/23/20 11:53 Hemoglobin A1c 6.2 % (4.5-5.6) H 04/23/20 11:53 Calcium 8.3 mg/dl (8.5-10.1) L 05/15/20 06:09 Albumin 3.2 gm/dl (3.4-5.0) L 04/23/20 11:53 Urine Color Yellow 04/23/20 13:55 Urine Appearance Clear (Clear) 04/23/20 13:55 Urine pH 5.0 (4.5-7.5) 04/23/20 13:55 Ur Specific Reedley 1.022 (1.000-1.030) 04/23/20 13:55 Urine Protein Negative (Negative) 04/23/20 13:55 Urine Glucose (UA) Negative (Negative) 04/23/20 13:55 Urine Ketones Trace (Negative) H 04/23/20 13:55 Urine Blood Negative (Negative) 04/23/20 13:55 Urine Nitrite Negative (Negative) 04/23/20 13:55 Urine Bilirubin Negative (Negative) 04/23/20 13:55 Urine Urobilinogen Negative (Negative) 04/23/20 13:55 Ur Leukocyte Esterase Trace (Negative) H 04/23/20 13:55 Urine WBC (Auto) 1-5 /hpf (0-5) 04/23/20 13:55 Urine RBC (Auto) 0-4 /hpf (0-4) 04/23/20 13:55 U Hyaline Cast (Auto) 1-5 /lpf (0-5) 04/23/20 13:55 U Epithel Cells (Auto) 20-30 /lpf (0-5) H 04/23/20 13:55 Urine Bacteria (Auto) Negative (Negative) 04/23/20 13:55 Blood Type O Positive 04/23/20 11:53 Antibody Screen NEGATIVE 04/23/20 11:53 Impressions Hip/Pelvis X-Ray 05/13/20 14:13 XR hip 1V RT w pelvis HISTORY: 84 years-old Male IN PACU - A/P PELVIS and LATERAL HIP right hip total joint arthroplasty COMPARISON: Pelvis and hip radiographs 08/23/2017 TECHNIQUE: AP view the pelvis with crosstable lateral view of the right hip FINDINGS: Left hip total joint arthroplasty redemonstrated. Interval placement of a right hip total joint arthroplasty demonstrates satisfactory alignment without acute fracture. Overlying skin prabhakar are noted along with expected postsurgical soft tissue swelling and deep tissue air with surgical drainage catheter. IMPRESSION: Right hip total joint arthroplasty with expected postoperative changes. ACT 112: Negative or not required by law. The above report was generated using voice recognition software. It may contain grammatical, syntax or spelling errors. Electronically signed by: Girma Murrieta M.D. 05/13/2020 2:30 PM (1) Osteoarthritis of right hip Osteoarthritis type: primary Qualified Code(s): M16.11 - Unilateral primary osteoarthritis, right hip
--- NOTE | 2020-05-15 20:58 | Discharge Summary ---
Date of Service May 15, 2020 Admission HPI Per Admitting Provider 84 year old male with PMHx significant for essential tremor, BPH, and DDD presents with longstanding right hip pain. Pain is interfering with his daily activity. He has failed conservative measures. Previously has had left hip replacement and has done well. Would like to proceed with right hip replacement. Patient denies headaches, sweats, fevers, chills, double vision, blurred vision, cough, sore throat, dysphagia, chest pain, sob, wheezing, n/v/d/c, numbness, tingling, fatigue, urinary symptoms, mood disorders. ROS positive for right hip pain and stiffness. Admission Exam Per Admitting Provider Constitutional: well developed and well nourished; no acute distress Eyes: PERRL, conjunctivae normal, anicteric sclerae ENMT: external ear and nose normal, oropharynx normal Neck: trachea midline, no thyromegaly Respiratory: normal respiratory effort, lungs clear to auscultation Cardiovascular: RRR, no murmur, no edema Musculoskeletal: Right hip: Active and passive painful ROM. Flexion to 95 degrees passively, abduction to 30 degrees, ER to 30, IR to 10 degrees. Strength normal. Skin: no rashes, warm and dry Neurologic: patellar DTR's 2+ bilat, sensation intact Psychiatric: A+Ox3, euthymic affect Principal Diagnosis Right hip osteoarthritis Discharge Exam Silverlon dressing is clean, dry, and intact. Hemovac drain has been removed and he has some slight drainage on his dressing. Thigh is soft and nontender. Calves are soft nontender. Neurovascular intact. Toes are mobile. Leg lengths appear equal. Constitutional well developed and well nourished; no acute distress Discharge Data Allergies Allergy/AdvReac Type Severity Reaction Status Date / Time No Known Allergies Allergy Unverified 05/13/20 08:23 Consultations 05/13/20 21:33 Consult Hospitalist Routine Procedures Performed Operation Date: 05/13/20 10:00 Actual Procedures p Right Total Hip Arthroplasty(Right) - Javan Rodriguez MD Hospital Course (1) Osteoarthritis of right hip: Patient presented for same day admission following right total hip arthroplasty on 05/13/20. He tolerated procedure well. The Patient had an uneventful hospital course. Post-operatively, his activity was progressed and well tolerated. They participated in PT with ambulation distance of 250 feet. Labs remained stable- lowest hemoglobin recorded: 12.[address] Ronnell Avendano of medical service was consulted for medical management during admission. Pain controlled on oral medications. Please refer to daily progress notes and PT notes for complete details. After exam on 05/15/20, patient was felt to be stable for discharge home with plans on attending outpatient PT. Patient will f/u in the office in about 2 weeks for further evaluation including x-rays and incision check, sooner if having any issues or concerns. POD#2 Right SACHI -PT/OT-WBAT with walker, no abductor strengthening -Pain management as written -AM labs-hemoglobin at 13 from 14.6 preop. Mild leukocytosis likely due to perioperative steroids and surgical stress-resolved -DVT prophylaxis-ASA 81mg BID, SCDs, TEDs -D/C planning-home with outpatient PT. Plan on d/c today. Lab Results 04/23/20 04/23/20 04/23/20 Range/Units 11:53 11:53 11:53 WBC 6.14 (4.8-10.8) K/uL RBC 5.13 (4.7-6.1) M/uL Hgb 14.6 (14.0-18.0) g/dL Hct 42.3 (42-52) % MCV 82.5 (80-100) fL MCH 28.5 (25-34) pg MCHC 34.5 (32-36) g/dL RDW Std Deviation 42.1 (36.4-46.3) fL RDW Coeff of Laurie 13.9 (11.5-14.5) % Plt Count 184 (130-400) K/uL MPV 10.1 (7.4-10.4) fL Immature Gran % (Auto) 0.2 % Neut % (Auto) 61.2 % Lymph % (Auto) 26.2 % [place] % (Auto) 8.8 % Eos % (Auto) 3.4 % Baso % (Auto) 0.2 % Neut # (Auto) 3.76 (1.4-6.5) K/uL Lymph # (Auto) 1.61 (1.2-3.4) K/uL [place] # (Auto) 0.54 (0.11-0.59) K/uL Eos # (Auto) 0.21 (0-0.5) K/uL Baso # (Auto) 0.01 (0-0.2) K/uL Immature Gran # (Auto) 0.01 (0.00-0.02) K/uL PT (9.0-12.0) Seconds INR (0.9-1.1) APTT (21.0-31.0) Seconds PTT Ratio Sodium 141 (136-145) mmol/L Potassium 3.8 (3.5-5.1) mmol/L Chloride 110 H (98-107) mmol/L Carbon Dioxide 26 (21-32) mmol/L Anion Gap 5.0 (3-11) BUN 18 (7-18) mg/dl Creatinine 0.88 (0.6-1.4) mg/dl Est Cr Clr Drug Dosing 75.8 ml/min Est GFR ( Amer) 92.7 Est GFR (Non-Af Amer) 80.0 BUN/Creatinine Ratio 20.1 H (10-20) Glucose 101 H (70-99) mg/dl Estimat Average Glucose mg/dl Hemoglobin A1c (4.5-5.6) % Calcium 9.1 (8.5-10.1) mg/dl Albumin 3.2 L (3.4-5.0) gm/dl Urine Color Urine Appearance (Clear) Urine pH (4.5-7.5) Ur Specific Dr[place]gs (1.000-1.030) Urine Protein (Negative) Urine Glucose (UA) (Negative) Urine Ketones (Negative) Urine Blood (Negative) Urine Nitrite (Negative) Urine Bilirubin (Negative) Urine Urobilinogen (Negative) Ur Leukocyte Esterase (Negative) Urine WBC (Auto) (0-5) /hpf Urine RBC (Auto) (0-4) /hpf U Hyaline Cast (Auto) (0-5) /lpf U Epithel Cells (Auto) (0-5) /lpf Urine Bacteria (Auto) (Negative) Blood Type O Positive Antibody Screen NEGATIVE 04/23/20 04/23/20 04/23/20 Range/Units 11:53 11:53 13:55 WBC (4.8-10.8) K/uL RBC (4.7-6.1) M/uL Hgb (14.0-18.0) g/dL Hct (42-52) % MCV (80-100) fL MCH (25-34) pg MCHC (32-36) g/dL RDW Std Deviation (36.4-46.3) fL RDW Coeff of Laurie (11.5-14.5) % Plt Count (130-400) K/uL MPV (7.4-10.4) fL Immature Gran % (Auto) % Neut % (Auto) % Lymph % (Auto) % [place] % (Auto) % Eos % (Auto) % Baso % (Auto) % Neut # (Auto) (1.4-6.5) K/uL Lymph # (Auto) (1.2-3.4) K/uL [place] # (Auto) (0.11-0.59) K/uL Eos # (Auto) (0-0.5) K/uL Baso # (Auto) (0-0.2) K/uL Immature Gran # (Auto) (0.00-0.02) K/uL PT 10.2 (9.0-12.0) Seconds INR 1.0 (0.9-1.1) APTT 25.6 (21.0-31.0) Seconds PTT Ratio 1.0 Sodium (136-145) mmol/L Potassium (3.5-5.1) mmol/L Chloride (98-107) mmol/L Carbon Dioxide (21-32) mmol/L Anion Gap (3-11) BUN (7-18) mg/dl Creatinine (0.6-1.4) mg/dl Est Cr Clr Drug Dosing ml/min Est GFR ( Amer) Est GFR (Non-Af Amer) BUN/Creatinine Ratio (10-20) Glucose (70-99) mg/dl Estimat Average Glucose 131 mg/dl Hemoglobin A1c 6.2 H (4.5-5.6) % Calcium (8.5-10.1) mg/dl Albumin (3.4-5.0) gm/dl Urine Color Yellow Urine Appearance Clear (Clear) Urine pH 5.0 (4.5-7.5) Ur Specific Dr[place]gs 1.022 (1.000-1.030) Urine Protein Negative (Negative) Urine Glucose (UA) Negative (Negative) Urine Ketones Trace H (Negative) Urine Blood Negative (Negative) Urine Nitrite Negative (Negative) Urine Bilirubin Negative (Negative) Urine Urobilinogen Negative (Negative) Ur Leukocyte Esterase Trace H (Negative) Urine WBC (Auto) 1-5 (0-5) /hpf Urine RBC (Auto) 0-4 (0-4) /hpf U Hyaline Cast (Auto) 1-5 (0-5) /lpf U Epithel Cells (Auto) 20-30 H (0-5) /lpf Urine Bacteria (Auto) Negative (Negative) Blood Type Antibody Screen 05/14/20 05/14/20 05/15/20 Range/Units 06:06 06:06 06:09 WBC 13.15 H 8.32 (4.8-10.8) K/uL RBC 4.53 L 4.37 L (4.7-6.1) M/uL Hgb 13.0 L 12.5 L (14.0-18.0) g/dL Hct 37.3 L 35.8 L (42-52) % MCV 82.3 81.9 (80-100) fL MCH 28.7 28.6 (25-34) pg MCHC 34.9 34.9 (32-36) g/dL RDW Std Deviation 41.7 41.9 (36.4-46.3) fL RDW Coeff of Laurie 13.7 13.8 (11.5-14.5) % Plt Count 180 193 (130-400) K/uL MPV 9.6 10.2 (7.4-10.4) fL Immature Gran % (Auto) 0.2 % Neut % (Auto) 81.1 % Lymph % (Auto) 10.4 % [place] % (Auto) 8.0 % Eos % (Auto) 0.2 % Baso % (Auto) 0.1 % Neut # (Auto) 10.67 H (1.4-6.5) K/uL Lymph # (Auto) 1.37 (1.2-3.4) K/uL [place] # (Auto) 1.05 H (0.11-0.59) K/uL Eos # (Auto) 0.02 (0-0.5) K/uL Baso # (Auto) 0.01 (0-0.2) K/uL Immature Gran # (Auto) 0.03 H (0.00-0.02) K/uL PT (9.0-12.0) Seconds INR (0.9-1.1) APTT (21.0-31.0) Seconds PTT Ratio Sodium 142 (136-145) mmol/L Potassium 4.2 (3.5-5.1) mmol/L Chloride 111 H (98-107) mmol/L Carbon Dioxide 28 (21-32) mmol/L Anion Gap 3.0 (3-11) BUN 23 H (7-18) mg/dl Creatinine 0.96 (0.6-1.4) mg/dl Est Cr Clr Drug Dosing 69.5 ml/min Est GFR ( Amer) 85.0 Est GFR (Non-Af Amer) 73.3 BUN/Creatinine Ratio 24.2 H (10-20) Glucose 121 H (70-99) mg/dl Estimat Average Glucose mg/dl Hemoglobin A1c (4.5-5.6) % Calcium 8.5 (8.5-10.1) mg/dl Albumin (3.4-5.0) gm/dl Urine Color Urine Appearance (Clear) Urine pH (4.5-7.5) Ur Specific [place] (1.000-1.030) Urine Protein (Negative) Urine Glucose (UA) (Negative) Urine Ketones (Negative) Urine Blood (Negative) Urine Nitrite (Negative) Urine Bilirubin (Negative) Urine Urobilinogen (Negative) Ur Leukocyte Esterase (Negative) Urine WBC (Auto) (0-5) /hpf Urine RBC (Auto) (0-4) /hpf U Hyaline Cast (Auto) (0-5) /lpf U Epithel Cells (Auto) (0-5) /lpf Urine Bacteria (Auto) (Negative) Blood Type Antibody Screen 05/15/20 Range/Units 06:09 WBC (4.8-10.8) K/uL RBC (4.7-6.1) M/uL Hgb (14.0-18.0) g/dL Hct (42-52) % MCV (80-100) fL MCH (25-34) pg MCHC (32-36) g/dL RDW Std Deviation (36.4-46.3) fL RDW Coeff of Laurie (11.5-14.5) % Plt Count (130-400) K/uL MPV (7.4-10.4) fL Immature Gran % (Auto) % Neut % (Auto) % Lymph % (Auto) % [place] % (Auto) % Eos % (Auto) % Baso % (Auto) % Neut # (Auto) (1.4-6.5) K/uL Lymph # (Auto) (1.2-3.4) K/uL [place] # (Auto) (0.11-0.59) K/uL Eos # (Auto) (0-0.5) K/uL Baso # (Auto) (0-0.2) K/uL Immature Gran # (Auto) (0.00-0.02) K/uL PT (9.0-12.0) Seconds INR (0.9-1.1) APTT (21.0-31.0) Seconds PTT Ratio Sodium 141 (136-145) mmol/L Potassium 4.0 (3.5-5.1) mmol/L Chloride 112 H (98-107) mmol/L Carbon Dioxide 29 (21-32) mmol/L Anion Gap 0 L (3-11) BUN 21 H (7-18) mg/dl Creatinine 0.80 (0.6-1.4) mg/dl Est Cr Clr Drug Dosing 83.4 ml/min Est GFR ( Amer) 96.4 Est GFR (Non-Af Amer) 83.2 BUN/Creatinine Ratio 25.8 H (10-20) Glucose 107 H (70-99) mg/dl Estimat Average Glucose mg/dl Hemoglobin A1c (4.5-5.6) % Calcium 8.3 L (8.5-10.1) mg/dl Albumin (3.4-5.0) gm/dl Urine Color Urine Appearance (Clear) Urine pH (4.5-7.5) Ur Specific [place] (1.000-1.030) Urine Protein (Negative) Urine Glucose (UA) (Negative) Urine Ketones (Negative) Urine Blood (Negative) Urine Nitrite (Negative) Urine Bilirubin (Negative) Urine Urobilinogen (Negative) Ur Leukocyte Esterase (Negative) Urine WBC (Auto) (0-5) /hpf Urine RBC (Auto) (0-4) /hpf U Hyaline Cast (Auto) (0-5) /lpf U Epithel Cells (Auto) (0-5) /lpf Urine Bacteria (Auto) (Negative) Blood Type Antibody Screen Total Time Total Time Spent Total Time Spent (In Minutes): 20 Discharge Plan Discharge Items Patient Disposition: Home - Self-Care Reason For Visit: Right Hip Degenerative Joint Disease Discharge Diagnosis: Right hip DJD Activity: Per Instructions section Weightbearing: Right weightbearing Weightbearing Comment: As tolerated with walker Non-emergency contact: Surgeon Call non-emergency contact if: your pain is not controlled, your temperature is above 101.5, your wound has increased redness and your wound has increased drainage Follow-up/Referrals: Domenic Sommer MD [Primary Care Provider] - Diet: Regular Addtl Attending Provider Instructions: ACTIVITY RECOMMENDATIONS: SELF CARE INSTRUCTIONS AFTER TOTAL HIP REPLACEMENT Until the incision and soft tissues around your hip have healed, there is a possibility that the hip prosthesis could dislocate. A. Observe the following precautions to prevent dislocation: 1. Don't bend your hip greater than 90 degrees. 2. Avoid crossing your legs or ankles while standing or lying. 3. Sit with your feet placed 6 inches apart. 4. When sitting, keep your knees below your hips. Sit on a firm surface, avoid deep, soft chairs and couches. Use an elevated toilet seat in the bathroom. 5. Don't bend over at the waist. Use a long handled shoehorn and a sock aid to help you put on your shoes and socks. A blow off worker can help you pick up operator objects that are too high or too low to reach. 6. Keep car riding to a minimum for at least one month after surgery. B. Your balance may be shaky for a while. Use crutches or a walker until directed by your doctor. C. Use hand rails when walking on stairs. D. Wear low heeled shoes with non-slip soles. E. Be sure that your floors are free of things that could trip you - throw rugs, electrical cords, small objects. Avoid wet and waxed floors, especially with crutches and canes. F. Try to walk several times a day with rest periods between. G. Continue with all the exercises taught to you in the hospital. Again, make walking a part of your daily routine. SPECIAL CARE INSTRUCTIONS: VERY IMPORTANT TO READ AND REVIEW A. You may still be at risk for phlebitis and blood clots. 1. Wear surgical stockings (GARY hose) for 2 weeks after surgery to improve circulation and reduce swelling. 2. Take Aspirin 81mg twice daily for 4 weeks or as directed by your doctor. This is your blood thinner. 3. High risk patients may be prescribed a stronger blood thinner if necessary. 4. If you are on Coumadin normally, your family doctor/warehouse specialist should monitor your blood work. Expect a phone call the day of or the day after bloodwork is drawn to adjust your dosage. B. You must take antibiotics before having dental work, bladder, bowel and other surgery. Your doctor will provide you with a permanent card to carry describing precautions. C. Call [facility] if you have a fever, redness or swelling around the incision, cloudy drainage from incision, or sudden increase in pain in your hip, not relieved by your regular pain medication. D. Please call the office at if you have any concerns or questions about your operation or recovery. * YOU MAY SHOWER, NO TUB BATHS UNTIL CLEARED BY YOUR DOCTOR. * WEAR GARY HOSE 20 HOURS PER DAY FOR 2 WEEKS. * YOU SHOULD USE A WALKER OR CRUTCHES FOR 2-4 WEEKS. THIS WILL HELP PREVENT STRAIN ON YOUR HIP MUSCLE AND ALLOW IT TO HEAL PROPERLY. YOU MAY WEAN TO A CANE TOLERATED. * MOST PATIENTS WILL HAVE HOME NURSING FOR THERAPY. IF YOU DECIDE TO DO OUTPATIENT PHYSICAL THERAPY, PLEASE SCHEDULE THIS 3 TIMES PER WEEK. * Silverlon- This is a large adhesive bandage that contains silver ions. This helps your incision heal by fighting off bacteria and protecting it from the outside environment. You are permitted to shower with this dressing. This will remain on your incision for 7 days and then should be removed. Some visible blood or drainage through the dressing window is normal. If there is significant drainage or leaking noted before the 7 days notify your doctor's office immediately. Once removed, keep incision clean and dry. If there is any drainage or redness noted, please call your surgeon. . FOLLOW UP VISIT: If appointment is not already scheduled: Please call [facility] to make a follow-up appointment for 2 weeks after your surgery at . Visit Report Forms: Smoking Cessation Stand-Alone Forms: [facility], Opioid Pain Management, Work/School Release (Inpt), Smoking Cessation Medications and DC Order Prescriptions: New aspirin 81 mg Tablet,Delayed Release (Dr/Ec) 81 mg PO BID 30 Days Qty: 60 RF: 0 acetaminophen 500 mg Tablet 1,000 mg PO Q8 14 Days Qty: 84 RF: 0 oxycodone 5 mg Tablet 5 mg PO Q4H MDD 6 PRN (Reason: pain) Qty: 30 RF: 0 polyethylene glycol 3350 [Miralax] 17 gram powder in packet 17 g PO DAILY PRN (Reason: constipation) Qty: 5 RF: 0 Continued tamsulosin 0.4 mg capsule 0.4 mg PO QPM RF: 0 finasteride 5 mg tablet 5 mg PO QPM RF: 0 Discontinued omega-3 fatty acids [Fish Oil Concentrate] 1,000 mg capsule 1,000 mg PO QAM RF: 0 Discharge Orders: Discharge Order (Routine); Ordered 05/15/20 Ordered By: Bryant Lopez/Other Patient Handouts: DVT Post Op Prevention, A1C Admission Data Admit Date/Time: 05/13/20 14:13 Attending Provider: Javan Rodriguez Admit Provider: Javan Rodriguez Primary Care Provider: Domenic Sommer Other Providers: Augustus Nelson Other Interventions: Discharge Summary Assessment (RN) Last Done: 05/15/20 10:54
== END 2020-05-15 12:33 | disposition home or self-care (01) ==
LOC: ASU 07:50 → 3E 07:50